=== PATIENT | male | born 1945 | race Caucasian/White ===

== ENCOUNTER 2022-06-13 12:06 | Day surgery (SDC) | payer OTHER ==
[~2022-06-13] VITALS: Ht 180.3 cm; Wt 119.0 kg
[~2022-06-13 12:06] MED LIST: AMLO5; ASPI325 PO; Aldactone100 MG; DOXA4; LOSA25; LOSA25 PO; LOSA50 PO; METO100ER PO; METO25ER; SPIR25; TOPROL XL200 MG PO
[2022-06-13] MEDS ORDERED: ELIQUIS5 M2 PO (12:27)
[2022-06-13] MEDS ORDERED: HYDCHL25 PO (12:28)
--- NOTE | 2022-06-13 12:41 | NUR ---
06/13/22 1241 KATHYA ANDREA IN AT 1227 ANTONIO IN AT 1224
== END 2022-06-13 14:14 | disposition home or self-care (01) ==
LOC: ORSCSDS 12:06
PROVIDERS: Ophthalmology
PROC: 08RJ3JZ Replacement of Right Lens with Synthetic Substitute, Percutaneous Approach (ICD-10-PCS; principal; 2022-06-13 13:30)
DX: H25.11 Age-related nuclear cataract, right eye (principal); I10 Essential (primary) hypertension; I48.91 Unspecified atrial fibrillation; Z79.01 Long term (current) use of anticoagulants; Z79.899 Other long term (current) drug therapy
CPT/HCPCS: J2001; J2250; J3010; J3301; J7040; V2632

== ENCOUNTER 2022-07-04 11:46 | Day surgery (SDC) | payer OTHER ==
[~2022-07-04] VITALS: Ht 180.3 cm; Wt 121.8 kg
[~2022-07-04 11:46] MED LIST changes: +ELIQUIS5 M2 PO; +HYDCHL25 PO
--- NOTE | 2022-07-04 12:15 | NUR ---
07/04/22 1215 Tonia David IN AT 1203 ANTONIO IN AT 1205
== END 2022-07-04 13:44 | disposition home or self-care (01) ==
LOC: ORSCSDS 11:46
PROVIDERS: Ophthalmology
PROC: 08DK3ZZ Extraction of Left Lens, Percutaneous Approach (ICD-10-PCS; principal; 2022-07-04 13:00)
DX: H25.12 Age-related nuclear cataract, left eye (principal); Z96.1 Presence of intraocular lens; I10 Essential (primary) hypertension; G47.33 Obstructive sleep apnea (adult) (pediatric); I48.91 Unspecified atrial fibrillation; E66.9 Obesity, unspecified; Z68.37 Body mass index [BMI] 37.0-37.9, adult; Z79.01 Long term (current) use of anticoagulants; Z79.899 Other long term (current) drug therapy
CPT/HCPCS: J2001; J2250; J3010; J3301; J7040; V2632

== ENCOUNTER → 2023-08-14 | Outpatient (CLI) | payer OTHER | END | disposition home or self-care (01) | LOC: LAB SHORT 16:46 → LAB 16:46 | DX: N39.0 Urinary tract infection, site not specified (principal) | CPT/HCPCS: 87077; 87086; 87186 ==

== ENCOUNTER → 2024-06-20 | Outpatient (CLI) | payer OTHER | LOC: LAB SHORT 10:54 → LAB 10:54 | DX: R31.0 Gross hematuria (principal) | CPT/HCPCS: 87086; 88108 ==

== ENCOUNTER → 2025-05-20 | Outpatient (CLI) | payer MEDICARE | LOC: LAB SHORT 16:34 → LAB 16:34 | DX: R31.0 Gross hematuria (principal) | CPT/HCPCS: 87077; 87086; 87186 ==